=== PATIENT | male | born 2005 | race Caucasian/White ===

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

== ENCOUNTER 2024-01-07 19:06 | Emergency (ER) | payer SELFPAY ==
[2024-01-07 19:30] VITALS: BP 132/76; PULSE 98; RESP 18; TEMP 36.9; O2SAT 94; BMI 25.1
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
[2024-01-07 20:32] VITALS: RESP 18; O2SAT 100
[2024-01-07] MEDS: HYDROmorphone 1 mg/mL INJ 1 mL IM (20:32)
[2024-01-07] MEDS: ondansetron 2 mg/ML SDV 2 mL 4 MG IM (20:34)
[2024-01-07 20:37] VITALS: PULSE 92; RESP 18; O2SAT 100
[2024-01-07] MEDS: lidocaine-epi 1% 20 mL INJ INJECTION (21:33)
[2024-01-07 21:59] VITALS: PULSE 90; RESP 16; O2SAT 96
== END 2024-01-07 21:58 | disposition home or self-care (01) ==
PROVIDERS: Emergency Provider Emergency Medicine; Family Provider Pediatrics Adolescent Medicine; PCP Pediatrics Adolescent Medicine
DX: S01.112A Laceration without foreign body of left eyelid and periocular area, initial encounter (principal); S40.022A Contusion of left upper arm, initial encounter; F17.290 Nicotine dependence, other tobacco product, uncomplicated; V48.0XXA Car driver injured in noncollision transport accident in nontraffic accident, initial encounter; Y92.410 Unspecified street and highway as the place of occurrence of the external cause
CPT/HCPCS: 12011; 70450; 70486; 72125; 96372; 99284; J1170; J2405

== ENCOUNTER → 2025-08-16 15:10 | Outpatient (BNVA) | payer BC, SELFPAY | PROVIDERS: Family Provider Pediatrics Adolescent Medicine; PCP Pediatrics Adolescent Medicine; Visit Provider Family Medicine Adult Medicine | DX: R68.89 Other general symptoms and signs (principal) | CPT/HCPCS: 87400 ==

== ENCOUNTER 2025-08-20 14:37 | Emergency (ER) | payer BC, SELFPAY ==
--- NOTE | 2025-08-20 14:38 | XR_ITS ---
WS: [id number] Portable AP upright chest, 08/20/2025 Clinical Data: cough Comparison: Two-view chest, 11/24/2018 Findings: No nodules, masses or effusions are seen. The heart is normal. The pulmonary vascularity is not increased. No pneumonia or pneumothorax is seen. XR/XR chest 1V portable [id number] Impression: Negative chest.
[2025-08-20 14:54] VITALS: BP 144/83; PULSE 80; RESP 17; TEMP 37.1; O2SAT 97; BMI 27.2
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
[2025-08-20 15:03] VITALS: BP 141/76; PULSE 91; O2SAT 95
== END 2025-08-20 15:24 | disposition home or self-care (01) ==
PROVIDERS: Emergency Provider Emergency Medicine
DX: J06.9 Acute upper respiratory infection, unspecified (principal); R05.9 Cough, unspecified; F17.290 Nicotine dependence, other tobacco product, uncomplicated
CPT/HCPCS: 71045; 96372; 99284; J1100